=== PATIENT | female | born 1960 | race Caucasian/White ===

== ENCOUNTER → 2019-12-31 16:27 | Outpatient (BNVA) | payer BC, SELFPAY | PROVIDERS: Family Provider Nurse Practitioner; Visit Provider Nurse Practitioner Family | DX: M51.36 Other intervertebral disc degeneration, lumbar region (principal); R53.83 Other fatigue; I10 Essential (primary) hypertension; E55.9 Vitamin D deficiency, unspecified; Z79.899 Other long term (current) drug therapy; E78.2 Mixed hyperlipidemia; K21.9 Gastro-esophageal reflux disease without esophagitis; H92.03 Otalgia, bilateral; H61.20 Impacted cerumen, unspecified ear; D64.9 Anemia, unspecified; M54.9 Dorsalgia, unspecified | CPT/HCPCS: 80053; 80061; 81001; 82306; 82607; 82746; 83036; 83540; 84443; 85025 ==

== ENCOUNTER → 2020-01-06 11:15 | Outpatient (BNVA) | payer BC, SELFPAY | PROVIDERS: Family Provider Nurse Practitioner; Visit Provider Nurse Practitioner Family | DX: M51.36 Other intervertebral disc degeneration, lumbar region (principal); M54.9 Dorsalgia, unspecified | CPT/HCPCS: 72114 ==

== ENCOUNTER → 2020-05-03 13:15 | Outpatient (BNVA) | payer BC, SELFPAY | PROVIDERS: Family Provider Nurse Practitioner; Visit Provider Nurse Practitioner Family | DX: M77.9 Enthesopathy, unspecified (principal) | CPT/HCPCS: 73630 ==

== ENCOUNTER 2020-05-21 11:35 | Outpatient (CLI) | payer BC, SELFPAY ==
--- NOTE | 2020-05-21 11:45 | MR_ITS ---
WS: [id number] MRI LUMBAR SPINE NONCONTRAST HISTORY: M51.36 Other intervertebral disc degeneration, lumbar region COMPARISON: None available. TECHNIQUE: Sagittal and axial multisequence imaging is submitted. Normal lumbar alignment with no compression fractures or marrow edema. Mild disc space narrowing and desiccation at L4-5 and L5-S1. There is a small amount of reactive emre ow edema along the endplates. No fracture. T12 benign hemangioma. Conus terminates normally at L1. L1-L2: Shallow LEFT foraminal disc protrusion with annular fissure. No abutment of the nerve root. L2-L3: Mild annular disc bulging. Mild ligamentum flavum hypertrophy and facet arthritis. No stenosis . L3-L4: Mild annular disc bulging and osteophytic ridging. Moderate bilateral ligamentum flavum hypert rophy. No significant stenosis. L4-L5: Mild annular disc bulging and osteophytic ridging. Central shallow disc protrusion with annula r fissure. Moderate ligamentum flavum hypertrophy. Mild encroachment and narrowing of the central can al. There is also mild narrowing of the subarticular recesses and lateral foramina and LEFT foramen. L5-S1: Mild osteophytic ridging with a central shallow disc protrusion. No significant central stenos is. Mild bilateral foraminal narrowing. Large simple cyst in the RIGHT adnexa with a maximum diameter 7.1 cm. The uterus also appears slightl y lobulated probably secondary to fibroids. A large RIGHT ovarian cyst was also described in 2010. MR/MR lumbar spine wo con* [id number] IMPRESSION: 1. Mild degenerative disc disease and osteophytosis at L4-5 and L5-S1. 2. Mild central, subarticular recess, lateral recess and LEFT foraminal narrow ing at L4-5. Slightly greater encroachment upon the LEFT L5 nerve root in the l ateral recess. 3. No significant central stenosis. 4. Mild bilateral foraminal narrowing at L5-S1. 5. 7.1 cm RIGHT ovarian cyst was described in 2010.
== END 2020-05-21 11:36 | disposition home or self-care (01) ==
LOC: RADSHAW 11:40
PROVIDERS: PCP Nurse Practitioner Family; Visit Provider Nurse Practitioner Family
DX: M51.36 Other intervertebral disc degeneration, lumbar region (principal); M51.37 Other intervertebral disc degeneration, lumbosacral region; N83.201 Unspecified ovarian cyst, right side
CPT/HCPCS: 72148

== ENCOUNTER → 2020-07-12 09:42 | Outpatient (BNVA) | payer OTHER, SELFPAY | PROVIDERS: PCP Nurse Practitioner Family; Visit Provider Podiatrist Foot & Ankle Surgery | DX: M79.672 Pain in left foot (principal); D25.9 Leiomyoma of uterus, unspecified; N83.201 Unspecified ovarian cyst, right side | CPT/HCPCS: 73630; 81500; 88175 ==

== ENCOUNTER → 2020-07-23 16:08 | Outpatient (BNVA) | payer OTHER, SELFPAY | PROVIDERS: PCP Nurse Practitioner Family; Visit Provider Obstetrics & Gynecology | DX: N85.4 Malposition of uterus (principal); N83.201 Unspecified ovarian cyst, right side | CPT/HCPCS: 76830 ==

== ENCOUNTER → 2020-10-15 08:32 | Outpatient (BNVA) | payer OTHER, SELFPAY | PROVIDERS: PCP Nurse Practitioner Family; Visit Provider Nurse Practitioner Family | DX: I10 Essential (primary) hypertension (principal); E78.2 Mixed hyperlipidemia; E55.9 Vitamin D deficiency, unspecified; Z79.899 Other long term (current) drug therapy; D64.9 Anemia, unspecified | CPT/HCPCS: 80053; 80061; 81003; 82306; 82607; 83036; 83921; 84443; 85025 ==

== ENCOUNTER → 2020-12-09 11:43 | Outpatient (BNVA) | payer OTHER, SELFPAY | PROVIDERS: PCP Nurse Practitioner Family; Visit Provider Nurse Practitioner Family | DX: D64.9 Anemia, unspecified (principal); R53.83 Other fatigue; I10 Essential (primary) hypertension; Z12.11 Encounter for screening for malignant neoplasm of colon; K59.04 Chronic idiopathic constipation | CPT/HCPCS: 81003; 82728; 83550 ==

== ENCOUNTER → 2021-12-26 10:18 | Outpatient (BNVA) | payer MEDICAID, SELFPAY | PROVIDERS: PCP Nurse Practitioner Family; Visit Provider Nurse Practitioner | DX: R10.9 Unspecified abdominal pain (principal); R19.8 Other specified symptoms and signs involving the digestive system and abdomen | CPT/HCPCS: 80053; 82150; 83690; 85025 ==

== ENCOUNTER → 2021-12-28 08:42 | Outpatient (BNVA) | payer MEDICAID, SELFPAY | PROVIDERS: PCP Nurse Practitioner Family; Visit Provider Nurse Practitioner | DX: R74.8 Abnormal levels of other serum enzymes (principal) | CPT/HCPCS: 86705; 86706; 86709; 86803; 87340 ==

== ENCOUNTER 2022-01-13 06:48 | Outpatient (CLI) | payer MEDICAID, SELFPAY ==
--- NOTE | 2022-01-13 07:15 | US_ITS ---
WS: [id number] Complete ABDOMINAL ULTRASOUND HISTORY: R10.9 - Unspecified abdominal pain COMPARISON: None available. Liver: 13.7 cm in length. Normal size liver with coarse echotexture. Increased attenuation. No mass i dentified. Mild central bile duct dilatation. Portal Vein: Normal hepatopetal flow with monophasic waveform. Gallbladder: Prior cholecystectomy. Pancreas: Normal size and echogenicity. CBD: 0.8 cm. Right kidney: 10.7 cm x 5.5 cm x 5.0 cm. No mass, cortical thickening or hydronephrosis. Left kidney: 10.4 cm x 4.3 cm x 4.6 cm. No mass, cortical thickening or hydronephrosis. Spleen: Normal size and echogenicity. Abdominal aorta and IVC are within normal limits. No ascites. US/US abdomen complete* [id number] IMPRESSION: 1. Prior cholecystectomy. 2. Mildly dilated common bile duct is probably physiologic on the basis of the cholecystectomy. 3. Moderate hepatic steatosis.
== END 2022-01-13 06:49 | disposition home or self-care (01) ==
PROVIDERS: PCP Nurse Practitioner Family; Visit Provider Nurse Practitioner
DX: R10.9 Unspecified abdominal pain (principal); K76.0 Fatty (change of) liver, not elsewhere classified; K83.8 Other specified diseases of biliary tract
CPT/HCPCS: 76700

== ENCOUNTER → 2022-01-25 15:49 | Outpatient (BNVA) | payer MEDICAID, SELFPAY | PROVIDERS: PCP Nurse Practitioner Family; Visit Provider Nurse Practitioner | DX: R74.8 Abnormal levels of other serum enzymes (principal); R10.9 Unspecified abdominal pain; R50.9 Fever, unspecified | CPT/HCPCS: 80053; 82150; 83690; 85025; 87635 ==

== ENCOUNTER 2022-02-02 10:28 | Emergency (ER) | payer MEDICAID, SELFPAY ==
[2022-02-02] VITALS (15 sets, daily range): BP systolic 108–134; BP diastolic 67–83; PULSE 86–100; RESP 18–19; TEMP 36.9; O2SAT 92–95; BMI 33.0
[2022-02-02 11:04] LABS: Add Urine Microscopic? NO; Charge for UA Resulting for Rev
[2022-02-02 11:10] LABS: Basophils % 0.3 %; Eosinophils % 0.3 %; Hematocrit 47.7 % (37.0-47.0); Hemoglobin 15.1 g/dL (11.5-15.3); Lymphocytes # 1.3 10^3/uL (0.8-4.8); Lymphocytes % 9.8 %; Mean Corpuscular HGB Conc 31.7 g/dL (30.0-36.0); Mean Corpuscular Hemoglobin 29.2 pg (28.0-34.0); Mean Corpuscular Volume 92.1 fl (81-99); Mean Platelet Volume 10.3 fL (7.4-10.4); Monocytes # 0.7 10^3/uL (0.2-0.9); Monocytes % 5.2 %; Neutrophils # 10.71 10^3/uL (1.8-7.7); Neutrophils % 83.9 %; Nucleated Red Blood Cells % 0 %; Platelet Count 334 10^3/cmm (130-400); Red Blood Count 5.18 10^6/uL (4.1-5.3); Red Cell Distribution Width 14.2 % (12.1-15.1); White Blood Count 12.8 10^3/uL (4.0-10.0)
[2022-02-02 11:23] LABS: Urine Appearance Clear (CLEAR); Urine Color Orange (Yellow); pH Urine 5 (5-7)
[2022-02-02 11:24] LABS: Bilirubin Urine 2+ (Negative); Blood Urine Neg (Negative); Glucose Urine UA Norm (Normal); Ketones Urine 1+ (Negative); Leukocyte Esterase Urine Negative (Negative); Nitrate Urine Negative (Negative); Protein Urine Neg (Negative); Urobilinogen Urine 4+ mg/dL (Negative)
--- NOTE | 2022-02-02 11:34 | W.ED.ABDPA2 ---
HPI - Abdominal Pain General: Chief Complaint: Abdominal Pain Stated Complaint: Abd pains, cant eat, N/V Time Seen by Provider: 02/02/22 10:42 Source: patient Mode of arrival: ambulatory History of Present Illness: 7-year-old female presents emergency room complaining of abdominal discomfort nausea vomiting. She gets it worse when she eats. This is been going on she initially told the nurse for 2 to 3 weeks for look in the chart looks like more like is been going on for 6 weeks. She has had elevated liver enzymes for some time she has had a hepatitis panel which was negative she had been referred to Dr. Chase for this. She did test positive for COVID while week ago her symptoms of COVID for the most part have been resolved she still has a little bit of nonproductive cough. No diarrhea no anosmia MD elicited complaint: abdominal pain Pertinent past history: none Onset (ago): week(s) Pain Consistency: intermittent Location: Epigastric Severity: moderate Quality: cramping Exacerbating factors: nothing Relieving factors: nothing Associated Symptoms: Denies anorexia, belching, bloating, change in bowel habits, change in stool character, chills, coffee ground emesis, constipation, GI cramping, diarrhea, dyspepsia, dysuria, excessive flatus, fever(s), heartburn, hematochezia, hematuria, hematemesis, fecal incontinence, loose stools, melena, nausea, poor appetite, syncope and vomiting Review of Systems Const: Denies: fever(s), chills, fatigue or malaise ENMT: Denies: throat pain, ear or mastoid pain, nasal discharge or nasal congestion Card: Denies: chest pain or syncope Resp: Denies: dyspnea, productive cough or non-productive cough GI: Denies: abdominal pain, nausea, vomiting, hematemesis, coffee ground emesis, heartburn, diarrhea, constipation, bloating, GI cramping, belching, excessive flatus, fecal incontinence, change in bowel habits, change in stool character, hematochezia or melena : Denies: flank pain, difficulty voiding, dysuria, urinary frequency, urinary urgency or hematuria Skin/Breast: Denies: rash or pruritus PFS ED PFSH: Medical History Actinic keratosis Acute bacterial otitis media Anemia Bone spur Chronic idiopathic constipation Colon cancer screening Contact dermatitis Current non-smoker but past smoking history unknown DDD (degenerative disc disease), cervical DDD (degenerative disc disease), lumbar Essential hypertension Fatigue Gastroesophageal reflux disease Mixed hyperlipidemia Otalgia of both ears Ovarian cyst Skin lesion of face Tinnitus Uterine fibroid Vitamin D deficiency Surgical History History of cholecystectomy Family History Brother CAD (coronary artery disease) Diabetes Mother Diabetes Hypertension Father Hypertension Denies family history of Colon cancer Ovarian cancer Clotting disorder Hyperlipidemia Breast cancer Bleeding disorder Uterine cancer Stroke Social History Smoking and tobacco status: former smoker Second hand smoke exposure: No Smoking risk assessment/counseling performed?: No Alcohol intake: never Desire information about alcohol rehabilitation?: No Counseling given: No Desire information about substance/drug rehabilitation?: No Counseling given: No Physical Exam Const: COMMON NORMALS: no acute distress GENERAL APPEARANCE: cooperative and comfortable ORIENTATION/CONSCIOUSNESS: Yes awake, Yes oriented to person, Yes oriented to place and Yes oriented to time HENMT: COMMON NORMALS: normocephalic, atraumatic and hearing grossly normal bilaterally HEAD & SCALP: normocephalic and atraumatic Resp: COMMON NORMALS: normal respiratory effort, No retractions, No use of accessory muscles and clear to auscultation bilaterally AUSCULTATION: clear to auscultation bilaterally Cardio: COMMON NORMALS: regular rate, regular rhythm and No murmurs present (Cardio) RATE: regular rate RHYTHM: regular rhythm GI: COMMON NORMALS: Soft to palpation and No hepatosplenomegaly present AUSCULTATION: Yes normoactive bowel sounds PALPATION: Yes Soft to palpation, No Tenderness to palpation present (GI), No Guarding due to palpation present (GI) and Yes No hepatosplenomegaly present Extremity: COMMON NORMALS: normal to inspection, capillary refill normal, no clubbing, cyanosis or edema, no calf tenderness and no pedal edema Neuro: SENSORIUM/ORIENTATION: Yes oriented to person, Yes oriented to place and Yes oriented to time Skin: COMMON NORMALS: no rashes or lesions noted GENERAL SKIN EXAM: no rashes or lesions noted Course Vital Signs: Vital signs: Vital Signs Temperature 98.5 F 02/02/22 10:41 Pulse Rate 86 02/02/22 10:45 Respiratory Rate 18 02/02/22 10:45 Blood Pressure 120/78 02/02/22 12:30 Pulse Oximetry 93 02/02/22 12:30 Oxygen Delivery Me thod 02/02/22 10:45 MDM - Abdominal Pain Medical Decision Making T bili is elevated transaminases are actually improving. At this point on things any we can do acutely she has previously had a cholecystectomy she has what appears to be a physical logically postcholecystectomy dilation of her common bile duct with no sign obstruction on previous exams. Lipase is normal. Organ to go ahead and discharge her home we will increase her Protonix add Carafate discussed dietary things to avoid. Have her follow-up with Dr. Chase as scheduled. Medical Records I reviewed the patient's medical records. Lab Data I reviewed the patient's lab results. : 02/02/22 10:59 02/02/22 10:59 Labs/Radiology: Radiology Impressions Chest X-Ray 02/02/22 11:36 Impression: Negative chest. Laboratory Results WBC 12.8 10^3/uL (4.0-10.0) H 02/02/22 10:59 RBC 5.18 10^6/uL (4.1-5.3) 02/02/22 10:59 Hgb 15.1 g/dL (11.5-15.3) 02/02/22 10:59 Hct 47.7 % (37.0-47.0) H 02/02/22 10:59 MCV 92.1 fl (81-99) 02/02/22 10:59 MCH 29.2 pg (28.0-34.0) 02/02/22 10:59 MCHC 31.7 g/dL (30.0-36.0) 02/02/22 10:59 RDW 14.2 % (12.1-15.1) 02/02/22 10:59 Plt Count 334 10^3/cmm (130-400) 02/02/22 10:59 MPV 10.3 fL (7.4-10.4) 02/02/22 10:59 Neut % (Auto) 83.9 % 02/02/22 10:59 Lymph % (Auto) 9.8 % 02/02/22 10:59 Grant % (Auto) 5.2 % 02/02/22 10:59 Eos % (Auto) 0.3 % 02/02/22 10:59 Baso % (Auto) 0.3 % 02/02/22 10:59 Neut # (Auto) 10.71 10^3/uL (1.8-7.7) H 02/02/22 10:59 Lymph # (Auto) 1.3 10^3/uL (0.8-4.8) 02/02/22 10:59 Grant # (Auto) 0.7 10^3/uL (0.2-0.9) 02/02/22 10:59 Eos # (Auto) 0.0 10^3/uL (0.0-0.8) 02/02/22 10:59 Baso # (Auto) 0.0 10^3/uL (0.0-0.1) 02/02/22 10:59 Nucleated RBC % (auto) 0 % 02/02/22 10:59 Nucleated RBCs # 0.0 /100WBC 02/02/22 10:59 Sodium 133 mmol/L (136-145) L 02/02/22 10:59 Potassium 3.8 mmol/L (3.5-5.1) 02/02/22 10:59 Chloride 99 mmol/L (98-107) 02/02/22 10:59 Carbon Dioxide 24 mmol/L (22-29) 02/02/22 10:59 Anion Gap 13.8 (5-19) 02/02/22 10:59 BUN 10 mg/dL (8-23) 02/02/22 10:59 Creatinine 0.6 mg/dL (0.5-0.9) 02/02/22 10:59 GFR Calculation 102.0 mL/min (90-130) 02/02/22 10:59 Glucose 132 mg/dL (65-115) H 02/02/22 10:59 Calculated Osmolality 277 mOsm/kg (285-295) L 02/02/22 10:59 Calcium 9.3 mg/dL (8.5-10.5) 02/02/22 10:59 Total Bilirubin 7.3 mg/dL (0.15-1.2) H* 02/02/22 10:59 AST 326 U/L (0-32) H 02/02/22 10:59 ALT 299 U/L (0-33) H 02/02/22 10:59 Alkaline Phosphatase 385 IU/L (35-105) H 02/02/22 10:59 Total Protein 7.8 g/dL (6.6-8.7) 02/02/22 10:59 Albumin 3.8 g/dL (3.5-5.2) 02/02/22 10:59 Globulin 4.0 g/dL (1.3-4.6) 02/02/22 10:59 Lipase 21 U/L (13-60) 02/02/22 10:59 Urine Color [place] (Yellow) 02/02/22 10:59 Urine Appearance Clear (CLEAR) 02/02/22 10:59 Urine pH 5 (5-7) 02/02/22 10:59 Ur Specific [place] 1.010 (1.005-1.030) 02/02/22 10:59 Urine Protein Neg (Negative) 02/02/22 10:59 Urine Glucose (UA) Norm (Normal) 02/02/22 10:59 Urine Ketones 1+ (Negative) H 02/02/22 10:59 Urine Blood Neg (Negative) 02/02/22 10:59 Urine Nitrate Negative (Negative) 02/02/22 10:59 Urine Bilirubin 2+ (Negative) H 02/02/22 10:59 Urine Urobilinogen 4+ mg/dL (Negative) H 02/02/22 10:59 Ur Leukocyte Esterase Negative (Negative) 02/02/22 10:59 Discharge Plan Discharge Patient Disposition: Home Clinical Impression: Hyperbilirubinemia, LFT elevation Condition: Stable Prescriptions: New pantoprazole 40 mg tablet,delayed release (DR/EC) 40 mg PO BID Qty: 60 0RF Carafate 1 gram tablet 1 g PO Q6H PRN (Reason: dyspepsia) 84 Days Qty: 336 0RF Discontinued omeprazole 40 mg capsule,delayed release(DR/EC) 40 mg PO DAILY No Action acetaminophen [Tylenol Arthritis Pain] 650 mg tablet extended release 650 mg PO Q12H PRN (Reason: Pain) ondansetron 4 mg tablet,disintegrating 4 mg PO Q8H PRN (Reason: nausea and vomiting) Qty: 20 0RF Zyrtec 10 mg Tablet 10 mg PO DAILY PRN (Reason: Allergy Symptoms) fluticasone propionate 50 mcg/actuation spray,suspension 2 spray INTRANASAL DAILY PRN (Reason: Allergy Symptoms) amlodipine 5 mg tablet 5 mg PO DAILY lisinopril 10 mg tablet 10 mg PO DAILY ergocalciferol (vitamin D2) 1,250 mcg (50,000 unit) capsule 1,250 mcg PO Q7D Rx Instructions: ON SUNDAY Discharge Orders: Discharge ED (Routine); Ordered 02/02/22 Ordered By: Magdaleno De La Fuente Referrals: CRISTEL Hartmann, [employer]2B OUTSIDE SALES REPRESENTATIVE [Primary Care Provider] - Discharge Diet: As Directed Discharge Activity: Increase activity as tolerated Patient Instructions: Opioid Safety Coding Level of Care Code ED Battery Technician for Yudith Son
[2022-02-02 11:36] LABS: Alanine Aminotransferase 299 U/L (0-33); Albumin Level 3.8 g/dL (3.5-5.2); Alkaline Phosphatase 385 IU/L (35-105); Anion Gap 13.8 (5-19); Aspartate Amino Transferase 326 U/L (0-32); Blood Urea Nitrogen 10 mg/dL (8-23); Calcium 9.3 mg/dL (8.5-10.5); Carbon Dioxide 24 mmol/L (22-29); Chloride 99 mmol/L (98-107); Glucose 132 mg/dL (65-115); Lipase 21 U/L (13-60); Osmolality Calculated 277 mOsm/kg (285-295); Potassium 3.8 mmol/L (3.5-5.1); Sodium 133 mmol/L (136-145); Total Protein 7.8 g/dL (6.6-8.7)
--- NOTE | 2022-02-02 11:36 | XR_ITS ---
WS: [id number] Portable AP upright chest, 02/02/2022 Clinical Data: dyspnea/cough Comparison: None. Findings: No nodules, masses or effusions are seen. The heart is normal. The pulmonary vascularity is not increased. No pneumonia or pneumothorax is seen. XR/XR chest 1V portable [id number] Impression: Negative chest.
[2022-02-02 11:40] LABS: Total Bilirubin 7.3 mg/dL (0.15-1.2)
[2022-02-02] MEDS: ondansetron 2 mg/ML SDV 2 mL 4 MG IVP (11:58)
[2022-02-02] MEDS: sodium chloride 0.9% 1,000 ML 999 ML IV (11:59)
[2022-02-02] MEDS: pantoprazole 40 mg SDV IVP (12:00)
== END 2022-02-02 13:27 | disposition home or self-care (01) ==
PROVIDERS: Physician Assistant; Emergency Provider Family Medicine; PCP Nurse Practitioner Family
DX: E80.6 Other disorders of bilirubin metabolism (principal); R79.89 Other specified abnormal findings of blood chemistry; I10 Essential (primary) hypertension; E78.2 Mixed hyperlipidemia; Z87.891 Personal history of nicotine dependence
CPT/HCPCS: 36415; 71045; 80053; 81003; 83690; 85025; 96361; 96374; 96375; 99284; C9113; J2405; J7030

== ENCOUNTER → 2022-06-02 13:15 | Outpatient (BNVA) | payer MEDICAID, SELFPAY | PROVIDERS: PCP Nurse Practitioner; Visit Provider Nurse Practitioner | DX: R51.9 Headache, unspecified (principal); B34.9 Viral infection, unspecified | CPT/HCPCS: 87426 ==

== ENCOUNTER → 2022-08-16 08:21 | Outpatient (BNVA) | payer MEDICAID, SELFPAY | PROVIDERS: PCP Nurse Practitioner; Visit Provider Nurse Practitioner | DX: E78.2 Mixed hyperlipidemia (principal) | CPT/HCPCS: 80061 ==

== ENCOUNTER → 2022-11-16 13:09 | Outpatient (BNVA) | payer MEDICAID, SELFPAY | PROVIDERS: PCP Nurse Practitioner; Referring Provider Nurse Practitioner; Visit Provider Physician Assistant | DX: M54.2 Cervicalgia (principal) | CPT/HCPCS: 72050 ==

== ENCOUNTER → 2023-02-06 08:17 | Outpatient (BNVA) | payer MEDICAID, SELFPAY | PROVIDERS: PCP Nurse Practitioner; Visit Provider Nurse Practitioner Family | DX: L85.3 Xerosis cutis (principal); Z79.899 Other long term (current) drug therapy | CPT/HCPCS: 80053; 84439; 84443; 85025; 86038; 86431 ==

== ENCOUNTER → 2023-03-01 14:30 | Outpatient (BNVA) | payer MEDICAID, SELFPAY | PROVIDERS: PCP Nurse Practitioner; Referring Provider Nurse Practitioner; Visit Provider Physician Assistant | DX: M47.812 Spondylosis without myelopathy or radiculopathy, cervical region (principal) | CPT/HCPCS: 72040 ==

== ENCOUNTER 2023-04-19 16:29 | Outpatient (CLI) | payer MEDICAID, SELFPAY ==
--- NOTE | 2023-04-19 16:45 | MR_ITS ---
WS: [id number] MRI CERVICAL SPINE NONCONTRAST HISTORY: pain COMPARISON: None available. Technique: Multiplanar, multisequence noncontrast imaging of the cervical spine. Normal cervical alignment with no compression fracture or significant disc space narrowing. Signal within the cervical cord is normal. Visualized posterior fossa is unremarkable. Craniocervical junction, C1 and C2 relationship, odontoid process and soft tissues are normal. C2-C3: Normal. C3-C4: Normal. C4-C5: Tiny central disc protrusion and small foraminal osteophytes. No stenosis. Mild facet arthriti s. C5-C6: Mild osteophytic ridging. No stenosis. C6-C7: Mild osteophytic ridging. There is a central disc protrusion. Very mild encroachment upon the thecal sac. Mild bilateral foraminal stenosis and mild facet arthritis. C7-T1: Normal. Paraspinal soft tissue are normal. IMPRESSION: 1. Tiny central disc protrusion at C4-5 and foraminal osteophytes. No stenosis. 2. Small central disc protrusion and osteophytic ridging at C6-7. Mild bilateral foraminal stenosis a nd facet arthritis.
== END 2023-04-19 16:30 | disposition home or self-care (01) ==
PROVIDERS: PCP Nurse Practitioner; Visit Provider Physician Assistant
DX: M47.812 Spondylosis without myelopathy or radiculopathy, cervical region (principal); M50.221 Other cervical disc displacement at C4-C5 level; M25.78 Osteophyte, vertebrae; Z13.6 Encounter for screening for cardiovascular disorders; I10 Essential (primary) hypertension; R73.9 Hyperglycemia, unspecified; E55.9 Vitamin D deficiency, unspecified
CPT/HCPCS: 72141; 80053; 80061; 81003; 82306; 83036; 84443; 85007; 85027

== ENCOUNTER 2023-05-02 13:52 | Outpatient (CLI) | payer MEDICAID, SELFPAY ==
--- NOTE | 2023-05-02 14:00 | MM_ITS ---
WS: [id number] BILATERAL 3D TOMOSYNTHESIS DIGITAL SCREENING MAMMOGRAPHY WITH CAD CLINICAL INFORMATION: Z12.31 - Encounter for screening mammogram for malignant ... HISTORY: Screening mammogram. No current complaints. COMPARISON: 2009 TECHNIQUE: Bilateral CC and MLO views. FINDINGS: Scattered fibroglandular densities bilaterally. No suspicious focal mass, asymmetry, calcifications, or architectural distortion. No evidence of malignancy. Lucent centered calcification LEFT breast. IMPRESSION: MM/[place] [id number] BI-RADS: 2-Benign FOLLOW UP: 1 Year Follow-up Recommend return to annual screening mammography.
== END 2023-05-02 13:53 | disposition home or self-care (01) ==
LOC: MOBLMAM 13:55
PROVIDERS: Visit Provider Nurse Practitioner Family
DX: Z12.31 Encounter for screening mammogram for malignant neoplasm of breast (principal)
CPT/HCPCS: 77063; 77067

== ENCOUNTER 2023-05-10 06:00 | Outpatient (RCR) | payer MEDICAID, SELFPAY | END 2023-05-31 23:59 | disposition home or self-care (01) | LOC: WPT 06:00 | PROVIDERS: Visit Provider Orthopaedic Surgery | DX: M54.2 Cervicalgia (principal); G89.29 Other chronic pain | CPT/HCPCS: 97110; 97161; 97530 ==

== ENCOUNTER → 2023-08-03 08:36 | Outpatient (BNVA) | payer MEDICAID, SELFPAY | PROVIDERS: PCP Nurse Practitioner Family; Visit Provider Nurse Practitioner Family | DX: I10 Essential (primary) hypertension (principal); E78.2 Mixed hyperlipidemia; L85.3 Xerosis cutis; R53.83 Other fatigue; Z79.899 Other long term (current) drug therapy; E55.9 Vitamin D deficiency, unspecified | CPT/HCPCS: 80053; 80061; 81003; 82607; 83036; 84443; 85025 ==

== ENCOUNTER → 2023-10-25 08:36 | Outpatient (BNVA) | payer MEDICAID, SELFPAY | PROVIDERS: PCP Nurse Practitioner Family; Visit Provider Nurse Practitioner Family | DX: M51.36 Other intervertebral disc degeneration, lumbar region (principal); M54.16 Radiculopathy, lumbar region; N83.201 Unspecified ovarian cyst, right side; D25.9 Leiomyoma of uterus, unspecified; G62.9 Polyneuropathy, unspecified; D64.9 Anemia, unspecified; Z79.899 Other long term (current) drug therapy | CPT/HCPCS: 80053; 82607; 82728; 82746; 83735; 84100; 85025 ==

== ENCOUNTER 2023-11-01 13:07 | Outpatient (CLI) | payer MEDICAID, SELFPAY ==
--- NOTE | 2023-11-01 13:13 | XRR_ITS ---
PROCEDURE INFORMATION: Exam: XR Lumbosacral Spine Exam date and time: 11/01/2023 1:31 PM Age: 63 years old Clinical indication: Low back pain; Additional info: M51.36 - other intervertebral disc degeneration, lumbar R. . . TECHNIQUE: Imaging protocol: Radiologic exam of the lumbosacral spine. Views: 6 or more views. Including flexion and extension views. COMPARISON: MR lumbar spine wo con* [id number] 21/05/2020 12:17 FINDINGS: Bones/joints: There is normal anatomic alignment of the lumbosacral spine. No fracture is identified. Again noted is chronic degenerative disc space narrowing at L4-L5 and L5-S1, similar in appearance to the prior MRI of the lumbar spine. Chronic degenerative facet hypertrophic changes are noted. No change in alignment on the flexion and extension images. Bilateral sacroiliitis. Soft tissues: Unremarkable. XR/XR lumbar spine 6V w f/e [id number] IMPRESSION: 1. Relatively stable appearing chronic degenerative disc disease of the lower lumbar spine 2. Bilateral sacroiliitis 3. No lumbosacral fracture
--- NOTE | 2023-11-01 15:00 | USR_ITS ---
PROCEDURE INFORMATION: Exam: US Nonobstetric Pelvis; Complete Exam date and time: 11/01/2023 1:44 PM Age: 63 years old Clinical indication: Condition or disease; Ovarian conditions; Type of cyst not specified; Additional info: N83.201 - unspecified ovarian cyst, right side TECHNIQUE: Imaging protocol: Transabdominal pelvic nonobstetric ultrasound. Complete exam. Real time ultrasound with image documentation. COMPARISON: US abdomen complete* [id number] 13/01/2022 07:02 and pelvic ultrasound July 23, 2020 FINDINGS: Uterus: Retroverted uterus is normal in size. Suspected small, round subserosal 2 cm uterine fibroid anteriorly. Anechoic/simple fluid in the endometrial canal. The endometrial lining does not appear thickened or nodular. Small nabothian cysts. Right ovary/adnexa: Large, anechoic right ovarian/adnexal cyst measuring up to 6.3 cm. This cyst is unchanged in size when compared to previous imaging in 2020. No mural nodularity is appreciated within the cyst at this time. . No solid mass. Normal blood flow. Left ovary/adnexa: The left ovary was not visualized. Intraperitoneal space: No intraperitoneal fluid. Urinary bladder: Normal. US/US pelv w/transvag [id number] IMPRESSION: 1. Stable 6.3 cm anechoic right ovarian/adnexal cyst without major interval change from the July 2020 exam 2. Nonvisualization of the left ovary 3. The endometrial canal is minimally expanded with simple/free fluid. The endometrial lining does not appear thickened 4. Small uterine fibroid
== END 2023-11-01 13:08 | disposition home or self-care (01) ==
LOC: RAD 13:07
PROVIDERS: PCP Nurse Practitioner Family; Visit Provider Nurse Practitioner Family
DX: M54.16 Radiculopathy, lumbar region (principal); N83.201 Unspecified ovarian cyst, right side; N85.8 Other specified noninflammatory disorders of uterus; D25.2 Subserosal leiomyoma of uterus; M51.36 Other intervertebral disc degeneration, lumbar region; M46.1 Sacroiliitis, not elsewhere classified; M47.897 Other spondylosis, lumbosacral region
CPT/HCPCS: 72114; 76830; 76856

== ENCOUNTER 2024-05-07 13:58 | Outpatient (CLI) | payer MEDICAID, SELFPAY ==
--- NOTE | 2024-05-07 14:00 | MM_ITS ---
WS: [id number] BILATERAL 3D TOMOSYNTHESIS DIGITAL SCREENING MAMMOGRAPHY WITH CAD CLINICAL INFORMATION: SCREENING HISTORY: Screening mammogram. No current complaints. COMPARISON: 2022 TECHNIQUE: Bilateral CC and MLO views. FINDINGS: Scattered fibroglandular densities bilaterally. No suspicious focal mass, asymmetry, calcifications, or architectural distortion. No evidence of malignancy. MM/MM scr BI tomosynthesis [id number] IMPRESSION: DENSITY: There are scattered areas of fibroglandular density. BI-RADS: 1 - Negative. FOLLOW UP: 1 Year Follow-up Recommend return to annual screening mammography.
== END 2024-05-07 13:59 | disposition home or self-care (01) ==
LOC: MOBLMAM 14:05
PROVIDERS: PCP Nurse Practitioner Family; Visit Provider Nurse Practitioner Family
DX: Z12.31 Encounter for screening mammogram for malignant neoplasm of breast (principal); R92.323 Mammographic fibroglandular density, bilateral breasts
CPT/HCPCS: 77063; 77067

== ENCOUNTER → 2025-01-06 09:06 | Outpatient (BNVA) | payer MEDICAID, SELFPAY | PROVIDERS: PCP Nurse Practitioner Family; Visit Provider Nurse Practitioner Family | DX: R30.0 Dysuria (principal) | CPT/HCPCS: 81003; 87086 ==

== ENCOUNTER → 2025-01-23 10:24 | Outpatient (BNVA) | payer MEDICAID, SELFPAY | PROVIDERS: PCP Nurse Practitioner Family; Visit Provider Nurse Practitioner Family | DX: I10 Essential (primary) hypertension (principal); E78.2 Mixed hyperlipidemia; E55.9 Vitamin D deficiency, unspecified; D64.9 Anemia, unspecified; R53.83 Other fatigue | CPT/HCPCS: 80053; 80061; 81003; 82306; 82728; 83036; 83550; 84443; 85025 ==

== ENCOUNTER → 2025-06-08 15:15 | Outpatient (BNVA) | payer MEDICAID, SELFPAY | PROVIDERS: PCP Nurse Practitioner Family; Visit Provider Nurse Practitioner Family | DX: N89.8 Other specified noninflammatory disorders of vagina (principal); N90.89 Other specified noninflammatory disorders of vulva and perineum; B00.9 Herpesviral infection, unspecified; R30.0 Dysuria | CPT/HCPCS: 81003; 86695; 86696; 87070; 87205 ==